=== PATIENT | female | born 1965 | race Caucasian/White ===

== ENCOUNTER 2016-07-17 21:43 | Inpatient (IN) | payer BC, OTHER ==
[~2016-07-17] VITALS: Ht 165.1 cm; Wt 87.2 kg
--- NOTE | ~2016-07-17 | HC ---
[facility] [place] [address] CONSULTATION Name: XAVIER FOX Room #: 438-P [facility] IN M.R.#: [id number] Admission: 07/18/16 Attend Phys: Karthik Karimi MD Discharge: Date of : 65 Report #: [id number] THIS REPORT FOR: //name// CC: [facility] physician/PCP Karthik Karimi DATE OF SERVICE: 07/18/2016 REASON FOR CONSULTATION: I was asked to evaluate concerning right mandible surgical site infection. HISTORY OF PRESENT ILLNESS: The patient was a 51-year-old with obstructive sleep apnea who underwent mandibular reconstruction on 07/08/[address] [place] [address] Gaurav Fairbanks. Postoperatively, she had some swelling to her surgical site and was placed on azithromycin. She does have allergy to PENICILLIN and SULFA. She returned to [place] and continued to have swelling and discomfort. She was then started on Levaquin, but did not improve. She noticed over the last 48 hours, she had increased swelling in the submandibular region and neck. No chills or sweats. She has had sensation of low-grade fever. Denies any cough or sputum production. No nausea, vomiting, diarrhea, dysuria or frequency. No rashes. She has had no drainage of significance from her incision. Her mouth is banded shut, but she can release the bands periodically during the day during eating. She has noticed no increased pain in her jaw. She is able to move her tongue. Swallowing is without difficulty. ALLERGIES: As noted above with PENICILLIN and SULFA. MEDICATIONS: Include vancomycin, which was added this morning. Other medications include Synthroid, Claritin, Celexa, Flonase, Glucophage, multivitamin. PAST MEDICAL HISTORY: Tubal ligation, bladder surgery, cardiac ablation and diabetes. SOCIAL HISTORY: Nonsmoker, no significant alcohol intake. 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 FAMILY HISTORY: Noncontributory. REVIEW OF SYSTEMS: As noted above. PHYSICAL EXAMINATION: VITAL SIGNS: Afebrile and hemodynamically stable. GENERAL: She is alert and cooperative and pleasant, in no acute distress. Moderately obese. SKIN: Unremarkable. [facility] [address] [place] [address] CONSULTATION Name: XAVIER FOX Room #: 438-P [facility] IN M.R.#: [id number] Admission: 07/18/16 Attend Phys: Karthik Karimi MD Discharge: Date of : 65 Report #: [id number] LYMPHATIC: Unremarkable. EYES: Unremarkable. MOUTH: Noted tenderness and swelling to the right mandible, mostly inferior submandibular region. She had 1+ swelling in the upper neck region. No definite cellulitis. Moderate tenderness. Her anterior gingival incision was well approximated. No purulent drainage was identified. I was unable to examine the mouth; otherwise, it was banded shut. NECK: Supple. LUNGS: Clear. HEART: Regular. ABDOMEN: Soft and nontender. LABORATORY STUDIES: CT scan of the neck revealed multiple postoperative fracture deformities. She had submandibular and anterior carotid chain lymphadenopathy with a rim enhancing hypodensity anterior to the right ramus along with soft tissue edema, paraesophageal mucosa thickening, left mastoiditis. Sodium 139, potassium 4.2, bicarbonate 27, creatinine 1.0. Liver function test normal. Hemoglobin 11.5, white count 6.8, platelet count 382,000, differential unremarkable. Chest x-ray clear. IMPRESSION AND PLAN: A 51-year-old status post mandibular reconstructive surgery for obstructive sleep apnea. She is postoperative day #20 with suspected surgical site infection. It is difficult to say if the small fluid collection is a hematoma or truly infected. Has multiple drug allergies. RECOMMENDATION: Broad antibiotic coverage including both gram-positive and gram-negative organisms. We will have ENT surgical evaluation. <ELECTRONICALLY SIGNED> By: Neil Martin MD 07/19/16 [id number] Neil Martin MD /nt
[~2016-07-17 21:43] MED LIST: CELEXA20 MG PO; CLARITIN10 MG PO; FLONASE 0.05%50 MCG; GLUCOPHAGE XR500 MG PO; MULTIVITAMINS1 EAC7 PO; SYNTHROID25 MCG PO
[2016-07-17 21:52] VITALS: BP 124/72
[2016-07-17 22:49] LABS: BASOPHILS 0.4 % (0.0-2.0); HEMATOCRIT 34.1 % (37.0-47.0); HEMOGLOBIN 11.5 gm/dL (12.0-15.0); LYMPHOCYTES 29.3 % (24.0-44.0); MCH 30.5 pg (26.0-34.0); MCHC 33.8 g/dL (28.0-37.0); MCV 90.3 fL (80.0-100.0); MONOCYTES 7.5 % (1.0-8.0); PLATELET COUNT 382 thou/uL (150-400); POLYS 58.8 % (36.0-66.0); RBC 3.78 mil/uL (4.20-5.00); WBC 6.8 thou/uL (4.0-11.0)
[2016-07-17 22:52] LABS: MANUAL DIFF NO
[2016-07-17 23:01] LABS: ANION GAP 8 mmol/L (7-16); BUN 7 mg/dL (7-18); CALCIUM 9.3 mg/dL (8.5-10.1); CHLORIDE 104 mmol/L (98-107); CO2 27 mmol/L (21-32); GLUCOSE 184 mg/dL (74-106); POTASSIUM 4.2 mmol/L (3.5-5.1); SODIUM 139 mmol/L (136-145)
[2016-07-17 23:06] LABS: ALBUMIN 3.1 g/dL (3.4-5.0); ALKALINE PHOSPHATASE 94 U/L (46-116); DIRECT BILIRUBIN < 0.1 mg/dL (<0.1-0.3); SGOT 18 U/L (15-37); SGPT 29 U/L (30-65); TOTAL BILIRUBIN 0.3 mg/dL (<0.1-1.0); TOTAL PROTEIN 7.2 g/dL (6.4-8.2)
[2016-07-18] VITALS (7 sets, daily range): BP systolic 109–146; BP diastolic 41–76
[2016-07-19 05:22] VITALS: BP 131/79
[2016-07-19 08:00] VITALS: BP 126/80
[2016-07-19 12:55] VITALS: BP 126/80
[2016-07-19] MEDS ORDERED: SYNTHROID25 MCG PO (13:14)
[2016-07-19 13:39] VITALS: BP 126/80
[2016-07-19 16:19] VITALS: BP 126/80
[2016-07-19 16:29] VITALS: BP 126/80
== END 2016-07-19 14:00 | disposition home health service (06) | DRG 863 ==
LOC: ER 21:43 → 4S 07-18 00:25 → EROBS 07-18 00:25 → 4S 07-18 01:16
PROVIDERS: Emergency Medicine
PROC: 02HV33Z Insertion of Infusion Device into Superior Vena Cava, Percutaneous Approach (ICD-10-PCS; principal; 2016-07-19)
PROC: B548ZZA Ultrasonography of Superior Vena Cava, Guidance (ICD-10-PCS; principal; 2016-07-19)
DX: T81.4XXA Infection following a procedure, initial encounter (principal); E03.9 Hypothyroidism, unspecified; E11.9 Type 2 diabetes mellitus without complications; M27.2 Inflammatory conditions of jaws; Y83.8 Other surgical procedures as the cause of abnormal reaction of the patient, or of later complication, without mention of misadventure at the time of the procedure; Z88.2 Allergy status to sulfonamides; Z88.0 Allergy status to penicillin; Z79.899 Other long term (current) drug therapy
CPT/HCPCS: 10102; 27001

== ENCOUNTER → 2016-08-27 | Outpatient (CLI) | payer BC, OTHER | LOC: CAT 12:44 | DX: M27.2 Inflammatory conditions of jaws (principal); J34.2 Deviated nasal septum ==